=== PATIENT | male | born 1945 | race Caucasian/White ===

== ENCOUNTER → 2021-07-21 | Emergency (ER) | payer MEDICAID, MEDICARE ==
[~2021-07-21] VITALS: Ht 170.2 cm; Wt 74.8 kg
--- NOTE | 2021-07-21 16:45 | NUR ---
PT TAKEN TO RADIOLOGY FOR HEAD CT SCAN.
[2021-07-21 17:31] VITALS: BP 125/89
--- NOTE | 2021-07-21 17:31 | NUR ---
Patient discharged to home in stable condition. Written and verbal after care instructions given. Patient verbalizes understanding of instruction.
== END | disposition home or self-care (01) ==
LOC: ER 16:10
DX: S09.90XA Unspecified injury of head, initial encounter (principal); E11.9 Type 2 diabetes mellitus without complications; W01.10XA Fall on same level from slipping, tripping and stumbling with subsequent striking against unspecified object, initial encounter; Y93.89 Activity, other specified; Y92.89 Other specified places as the place of occurrence of the external cause; Y99.8 Other external cause status
CPT/HCPCS: 70450-TC